=== PATIENT | male | born 1955 | race Caucasian/White ===

== ENCOUNTER 2018-12-01 01:01 | Emergency (ER) | payer MEDICAID ==
[~2018-12-01] VITALS: Ht 172.7 cm; Wt 57.4 kg
[2018-12-01] MEDS ORDERED: LOSA25TA41 PO (01:14)
[2018-12-01] MEDS ORDERED: ALBU8.5H8 IH (01:14)
[2018-12-01 03:34] VITALS: BP 147/89
== END 2018-12-01 04:05 | disposition home or self-care (01) ==
LOC: EMS 01:01
DX: S01.111A Laceration without foreign body of right eyelid and periocular area, initial encounter (principal); F10.129 Alcohol abuse with intoxication, unspecified; J45.909 Unspecified asthma, uncomplicated; I10 Essential (primary) hypertension; F17.210 Nicotine dependence, cigarettes, uncomplicated; W19.XXXA Unspecified fall, initial encounter; Y93.01 Activity, walking, marching and hiking; Y92.89 Other specified places as the place of occurrence of the external cause; Y99.8 Other external cause status; Y90.0 Blood alcohol level of less than 20 mg/100 ml
CPT/HCPCS: 12011; 36415; 70450; 72125; 99284; G0480